=== PATIENT | male | born 1955 | race Caucasian/White ===

== ENCOUNTER → 2017-01-09 | Outpatient (CLI) | payer SELFPAY ==
[~2017-01-09] MED LIST: ASA CHILDREN'S81 MG NG; ASA CHILDREN'S81 MG OG; COREG DPS3.125 MG NG; COREG DPS3.125 MG OG; HUMALOG, N100 UNITS/ SQ; HUMALOG100 UNIT/1 SQ; KEPPRA750 MG NG; KLONOPIN DPS0.5 MG NG; KLONOPIN DPS1 MG NG; LEVEMIR100 UNIT/1 SQ; LIORESAL DPS20 MG OG; LOVENOX DP40 MG/0.4 SQ; MELATONIN3 MG NG; NEURONTIN DPS300 MG NG; NEURONTIN DPS600 MG NG; OXY IR DPS5 MG NG; PEPCID DPS20 MG GT; PEPCID DPS20 MG NG; TYLENOL DPS325 MG NG; ZESTRIL DPS5 MG; ZESTRIL DPS5 MG NG
== END | disposition home or self-care (01) ==
LOC: RAD.S 09:38
DX: M25.552 Pain in left hip (principal); M25.562 Pain in left knee

== ENCOUNTER 2017-02-27 00:33 | Emergency (ER) | payer SELFPAY ==
--- NOTE | 2017-02-28 04:20 | ER ---
ADMIT: 02/27/2017 RM/LOC: ER [facility] MR#: [id number] [facility] [address] [place], [place] [id number] [address]IL[address] MIGUEL [address] [place] [address] Emergency Room Report SEX: M AGE: 61 : 1955 DATE: 02/27/2017 CHIEF COMPLAINT: Twitching. HISTORY OF PRESENT ILLNESS: The patient is a 61-year-old gentleman with previous cardiac arrest and anoxic brain injury, who has been in skilled care for an extended period of time. He has had a seizure disorder in the past. He is on medications including Keppra, Klonopin, and Ativan. The primary concern from the staff at [facility] is that he had some intermittent twitching today that had been persistent through the day and was not getting better so they had him transferred over for evaluation. The patient is essentially nonverbal at baseline, but is normally alert and can answer some basic questions with head nods and gestures. From my understanding other than the twitching, he has been at his baseline and did not have any other change or signs of acute illness. The patient is not able to provide me with an accurate review of systems due to his baseline anoxic brain injury with limited communication, but he does not state that he is in any pain. PAST MEDICAL HISTORY: Coronary artery disease, previous UT, anoxic brain injury, and seizure disorder. MEDICATIONS: See nurse's note. ALLERGIES: NONE. SOCIAL HISTORY: Does not smoke, drink, or use drugs, but does have a history of smoking and is currently living in group home care. PHYSICAL EXAMINATION: GENERAL: The patient is alert, in no distress. HEENT: Pupils are reactive. He will track with his eyes, and he has some occasional rapid eye blinking, which is unsure if that is his baseline. He will move his head without any difficulty. His airway is patent. HEART: Regular rate and rhythm. LUNGS: Clear to auscultation. ABDOMEN: Soft. He does occasionally have some twitching and almost some tremor like activity, but he is alert when it is occurring and will nod yes or no to some questions even when this is occurring. SKIN: Warm and dry. LABORATORY DATA: CBC and BMP were unremarkable. EMERGENCY DEPARTMENT COURSE: We did give the patient an additional dose of Keppra while here and one of IV Ativan. We monitored him for nearly 3 hours in the Emergency Department, and his vital signs were stable for him, and he does have a baseline hypotension, which is not new. He was never in any distress while here, and he would arouse and answer questions and states he ADMIT: 02/27/2017 RM/LOC: [facility] MR#: [id number] [address] [place] [id number] [place] [address] [address] [place] [address] Emergency Room Report SEX: M AGE: 61 : 1955 was not in any pain. At this point, I am unsure of the twitching behavior that he has and it does not particularly appear to be seizure activity to me, and he is not having any change in his symptoms with Keppra given to him. At this point, he does appear to be stable to be discharged. We will send him back to group home, and they are to continue his current medications and update his primary care physician's office later today on how he is doing. They are told they can bring him back for any other concerning symptoms. DIAGNOSES: 1. Twitching behavior. 2. Tremor. 3. Anoxic brain injury. Charan Hung MD/ roberto JOB #: [id number] CC: Charan Hung MD, Attending Physician UNKNOWN, Family Physician
== END 2017-02-27 04:20 | disposition home or self-care (01) ==
LOC: ER 00:33
DX: G93.1 Anoxic brain damage, not elsewhere classified (principal); R25.3 Fasciculation; R25.1 Tremor, unspecified; G40.909 Epilepsy, unspecified, not intractable, without status epilepticus; Z79.82 Long term (current) use of aspirin; Z87.891 Personal history of nicotine dependence; Z79.899 Other long term (current) drug therapy

== ENCOUNTER 2017-03-27 05:38 | Day surgery (SDC) | payer SELFPAY ==
[~2017-03-27] VITALS: Ht 165.1 cm; Wt 55.9 kg
== END 2017-03-27 10:50 | disposition home or self-care (01) ==
LOC: RAD.S 05:38 → SSS 07:53 → RAD.S 10:50 → SSS 15:52
DX: R56.9 Unspecified convulsions (principal); I50.20 Unspecified systolic (congestive) heart failure; I25.2 Old myocardial infarction; E11.9 Type 2 diabetes mellitus without complications; G93.1 Anoxic brain damage, not elsewhere classified; Z79.899 Other long term (current) drug therapy; Z90.49 Acquired absence of other specified parts of digestive tract; Z87.891 Personal history of nicotine dependence